=== PATIENT | female | born 1965 | race Caucasian/White ===

== ENCOUNTER 2021-02-18 10:04 | Outpatient (CLI) | payer BC ==
[2021-02-18 11:47] LABS: #Basophils 0.1 10x3/uL (0.0-0.2); #Monocytes 0.5 10x3/uL (0.0-1.1); %Basophils 0.6 % (0.0-2.0); %Eosinophils 0.4 % (0.0-6.0); %Lymphocytes 33.1 % (18.0-47.0); %Monocytes 6.4 % (0.0-10.0); Hemoglobin 14.4 g/dL (12.0-15.5); Mean Corpuscular Hemoglobin 32.4 pg (27.0-33.0); Mean Corpuscular Volume 89.9 fl (81.6-98.3); Mean Platelet Volume 9.2 fl (7.4-10.4); Platelet Count 348 10x3/uL (150-450); RBC Distribution Width 12.4 % (11.5-14.5); Red Blood Cell (RBC) Count 4.45 10x6/uL (3.90-5.03); White Blood Cell (WBC) Count 8.5 10x3/uL (3.5-10.5)
[2021-02-18 12:12] LABS: Anion Gap 15 mmol/L (10-20); BUN (Urea Nitrogen) 14 mg/dL (9.8-20.1); Calc. Creatinine Clearance 0 mL/min (70-130); Calcium 9.8 mg/dL (7.8-10.44); Carbon Dioxide 29 mmol/L (22-29); Chloride 90 mmol/L (98-107); Glucose 90 mg/dL (70-105); Potassium 3.3 mmol/L (3.5-5.1); Sodium 131 mmol/L (136-145)
[2021-02-18 17:35] LABS: SARS-CoV-2 PCR by NAA Not Detected (NotDetected)
== END 2021-02-18 10:05 | disposition home or self-care (01) ==
LOC: LABBT 10:04
PROVIDERS: ATTEND Orthopaedic Surgery
DX: Z01.818 Encounter for other preprocedural examination (principal); M75.101 Unspecified rotator cuff tear or rupture of right shoulder, not specified as traumatic; Z20.822 Contact with and (suspected) exposure to COVID-19
CPT/HCPCS: 80048; 85025; 93005; 93010; U0003; U0005

== ENCOUNTER 2021-02-23 07:01 | Day surgery (SDC) | payer BC ==
[2021-02-21 15:38] VITALS: BMI 22.1
[2021-02-23] MEDS ORDERED: ceFAZolin 2 GM/DEX 5% 100 ML BAG ONE (07:45)
[2021-02-23] MEDS ORDERED: Fentanyl 100 MCG/2 ML VIAL ONE ×3 (08:06→11:26)
[2021-02-23] MEDS ORDERED: Midazolam HCl 2 mg/2 ml Vial ONE (08:06)
[2021-02-23] MEDS ORDERED: Rocuronium Bromide 10 MG/ML (10ML VIAL) ONE (08:30)
[2021-02-23] MEDS ORDERED: PROPOFOL 200 MG/20 ML VIAL ONE (08:30)
[2021-02-23] MEDS ORDERED: Ketorolac Tromethamine 30 MG/ML VIAL ONE (08:30)
[2021-02-23] MEDS ORDERED: Phenylephrine 10 MG/ML VIAL ONE (08:30)
[2021-02-23] MEDS ORDERED: Ondansetron PF 4 MG/2 ML Vial ONE (08:30)
[2021-02-23] MEDS ORDERED: Dexamethasone 20 MG/5 ML VIAL ONE (08:30)
[2021-02-23] MEDS ORDERED: Ropivacaine 0.5% HCl/PF (150 MG/30 ML VIAL) ONE (08:30)
[2021-02-23] MEDS ORDERED: Vancomycin 1 GM/200 ML BAG ONE (08:36)
[2021-02-23] MEDS ORDERED: Tranexamic Acid 1,000 MG/10 ML VIAL ONE (09:36)
[2021-02-23] MEDS ORDERED: Albuterol Sulfate 1.25 MG/3 ML NEB ONE (10:50)
[2021-02-23] MEDS ORDERED: Bupivacaine 0.5% 10 ML VIAL ONE (11:11)
[2021-02-23] MEDS ORDERED: Zolpidem Tartrate 5 MG TAB PO PRN (11:30)
[2021-02-23] MEDS ORDERED: Ondansetron PF 4 MG/2 ML Vial IVP PRN (11:30)
[2021-02-23] MEDS ORDERED: Promethazine HCl 25 MG/ML VIAL IM PRN (11:30)
[2021-02-23] MEDS ORDERED: traMADol HCl 50 MG TAB PO PRN ×2 (11:30)
[2021-02-23] MEDS ORDERED: HYDROcodone/Acetaminophen 5/325 mg Tablet PO PRN ×2 (11:30)
[2021-02-23] MEDS ORDERED: Ropivacaine 0.2% 550 ML 550 ML NERVE BLCK SCH (11:30)
== END 2021-02-23 13:40 | disposition home or self-care (01) ==
LOC: SDC 07:01
PROVIDERS: ATTEND Orthopaedic Surgery
PROC: 0LS30ZZ Reposition Right Upper Arm Tendon, Open Approach (ICD-10-PCS; principal; 2021-02-23)
PROC: 0RNJ0ZZ Release Right Shoulder Joint, Open Approach (ICD-10-PCS; principal; 2021-02-23)
PROC: 0LQ10ZZ Repair Right Shoulder Tendon, Open Approach (ICD-10-PCS; principal; 2021-02-23)
PROC: 3E0T3BZ Introduction of Anesthetic Agent into Peripheral Nerves and Plexi, Percutaneous Approach (ICD-10-PCS; principal; 2021-02-23)
PROC: 0RHJ04Z Insertion of Internal Fixation Device into Right Shoulder Joint, Open Approach (ICD-10-PCS; principal; 2021-02-23)
DX: M75.101 Unspecified rotator cuff tear or rupture of right shoulder, not specified as traumatic (principal); M25.811 Other specified joint disorders, right shoulder; M25.311 Other instability, right shoulder; I10 Essential (primary) hypertension; E78.5 Hyperlipidemia, unspecified; J45.909 Unspecified asthma, uncomplicated; E78.00 Pure hypercholesterolemia, unspecified; F17.210 Nicotine dependence, cigarettes, uncomplicated; Z79.899 Other long term (current) drug therapy; Z88.1 Allergy status to other antibiotic agents; Z88.5 Allergy status to narcotic agent; Z88.8 Allergy status to other drugs, medicaments and biological substances
CPT/HCPCS: A4306; C1713; J2250; J2795; J3010; J3370; J3490

== ENCOUNTER 2022-09-01 10:14 | Outpatient (CLI) | payer BC | END 2022-09-01 10:15 | disposition home or self-care (01) | LOC: BICMRI 10:14 | PROVIDERS: ATTEND Neurological Surgery | DX: M51.14 Intervertebral disc disorders with radiculopathy, thoracic region (principal); M54.50 Low back pain, unspecified; M51.36 Other intervertebral disc degeneration, lumbar region; M51.37 Other intervertebral disc degeneration, lumbosacral region | CPT/HCPCS: 72146; 72148 ==